=== PATIENT | male | born 1965 | race Caucasian/White ===

== ENCOUNTER 2016-11-27 10:16 | Emergency (ER) | payer SELFPAY ==
[~2016-11-27] VITALS: Ht 190.5 cm; Wt 160.0 kg
[2016-11-27 10:23] VITALS: BP 143/83
== END 2016-11-27 11:35 | disposition home or self-care (01) ==
LOC: ED 11:12
DX: M13.10 Monoarthritis, not elsewhere classified, unspecified site (principal); S83.412A Sprain of medial collateral ligament of left knee, initial encounter; X50.1XXA Overexertion from prolonged static or awkward postures, initial encounter; Y93.89 Activity, other specified; Y92.488 Other paved roadways as the place of occurrence of the external cause; Y99.8 Other external cause status; Z88.6 Allergy status to analgesic agent
CPT/HCPCS: 99284

== ENCOUNTER 2020-07-30 08:16 | Emergency (ER) | payer OTHER ==
[~2020-07-30] VITALS: Ht 190.5 cm; Wt 149.5 kg
--- NOTE | 2020-07-30 08:36 | NUR ---
pt is a 55 complaining of "twinges" in his chest for a couple of weeks. He denies pain, n/v, dizziness, and sob. 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 stenocaptioner, sp02, and bp monitors in place. Call light within reach.
[2020-07-30] MEDS ORDERED: METO1TAB7 PO (08:41)
[2020-07-30] MEDS ORDERED: ATOR20TA37 PO (08:42)
[2020-07-30] MEDS ORDERED: OMEP-110 PO (08:42)
[2020-07-30] MEDS ORDERED: METF500T17 PO (08:43)
[2020-07-30] MEDS ORDERED: ASPI-963 PO (08:45)
[2020-07-30] MEDS ORDERED: ASPIRIN 81 MG TABLET CHEW ONE (09:00)
[2020-07-30 09:20] LABS: BASOPHILS % (AUTO) 1 % (0-1); EOSINOPHILS % (AUTO) 3 % (1-7); LYMPHOCYTES % (AUTO) 18 % (22-44); MEAN CORPUSCULAR HEMOGLOBIN 30.5 pg (27.5-34.5); MEAN CORPUSCULAR HGB CONC 33.9 g/dL (33.2-36.2); MEAN PLATELET VOLUME 7.9 fL (7.4-10.4); MONOCYTES % (AUTO) 6 % (2-9); NEUTROPHILS % (AUTO) 73 % (42-75); PLATELET COUNT 200 x10^3/uL (130-400); RED BLOOD COUNT 5.14 x10^6/uL (4.38-5.82); RED CELL DISTRIBUTION WIDTH 14.2 % (9.4-14.8)
[2020-07-30 09:22] LABS: MD NO
[2020-07-30 09:25] LABS: ALANINE AMINOTRANSFERASE 29 U/L (12-78); ALBUMIN 3.7 g/dL (3.4-5.0); ANION GAP 4 mmol/L (5-15); CALCIUM 8.6 mg/dL (8.5-10.1); CHLORIDE 112 mmol/L (98-107); CREATININE 0.89 mg/dL (0.7-1.3)
[2020-07-30 09:28] LABS: ALKALINE PHOSPHATASE 110 U/L (45-117); BILIRUBIN,TOTAL 0.3 mg/dL (0.2-1.0); TROPONIN I < 0.015 ng/mL (0.000-0.045)
[2020-07-30] MEDS ORDERED: ASPIRIN 81 MG TABLET CHEW PO ONE (09:30)
--- NOTE | 2020-07-30 10:04 | NUR ---
PT REMOVED ALL CARDIAC STICKERS AND MONITORS AND STATES HE WANTS TO GO HOME AND EAT. ADVISED WE WILL HAVE HIS RESULTS SOON AND A DISPOSITION.CALL LIGHT WITHIN REACH.
[2020-07-30 10:18] VITALS: BP 137/106
== END 2020-07-30 10:36 | disposition home or self-care (01) ==
LOC: ED 09:45
DX: R07.89 Other chest pain (principal); M79.10 Myalgia, unspecified site; M19.90 Unspecified osteoarthritis, unspecified site; I25.2 Old myocardial infarction; F17.210 Nicotine dependence, cigarettes, uncomplicated
CPT/HCPCS: 36415; 71045; 80053; 84484; 85025; 93005; 99285; 99406